=== PATIENT | female | born 1990 | race Hispanic/Latino ===

== ENCOUNTER 2022-09-26 13:45 | Emergency (ER) | payer BC ==
[~2022-09-26] VITALS: Ht 172.7 cm; Wt 165.6 kg
[2022-09-26] MEDS ORDERED: CYCL10TA16 PO (15:25)
[2022-09-26] MEDS ORDERED: IBUP-2070 PO (15:25)
[2022-09-26] MEDS ORDERED: KETOROLAC 30MG VIAL (30MG/ML) IM ONE (15:30)
[2022-09-26 16:07] VITALS: BP 136/92; PULSE 61; RESP 17; O2SAT 97
== END 2022-09-26 15:55 | disposition home or self-care (01) ==
LOC: EDH 13:45
DX: S96.912A Strain of unspecified muscle and tendon at ankle and foot level, left foot, initial encounter (principal); X58.XXXA Exposure to other specified factors, initial encounter; Y93.89 Activity, other specified; Y92.89 Other specified places as the place of occurrence of the external cause; Y99.8 Other external cause status
CPT/HCPCS: 99284; 73600; 96372; J1885